=== PATIENT | male | born 1965 | race Caucasian/White ===

== ENCOUNTER → 2017-11-22 | Outpatient (CLI) | payer BC ==
[2017-11-22 17:37] LABS: Basophils % (A) 1 %; Eosinophils # (A) 0.2 k/uL (0-0.7); Eosinophils % (A) 3 %; HGB 13.6 gm/dL (13.0-17.5); Lymphocytes # (A) 1.7 k/uL (1.0-4.8); Lymphocytes % (A) 33 %; MCH 29.3 pg (25.0-35.0); MCHC 34.1 g/dL (31.0-37.0); Monocytes # (A) 0.3 k/uL (0-1.0); Monocytes % (A) 6 %; Neutrophils # (A) 2.9 k/uL (1.3-7.7); Neutrophils % (A) 54 %; Platelet Count 301 k/uL (150-450); RBC 4.65 m/uL (4.30-5.90); RDW 13.5 % (11.5-15.5); WBC 5.3 k/uL (3.8-10.6)
== END ==
LOC: LABPAT 16:47
PROVIDERS: ATTEND Surgery
DX: Z01.812 Encounter for preprocedural laboratory examination (principal); Z01.818 Encounter for other preprocedural examination; R13.19 Other dysphagia; K21.0 Gastro-esophageal reflux disease with esophagitis
CPT/HCPCS: 36415; 85025; 93005

== ENCOUNTER 2017-11-28 06:20 | Inpatient (IN) | payer BC ==
[2017-11-22 15:23] VITALS: BMI 32.5
[~2017-11-28 06:20] MED LIST: DEXAMETHASONE SOD PHOSPHATE 10 MG/ML 1 ML VIAL IV ONE; HEPARIN SODIUM,PORCINE 5,000 UNIT/ML 1 ML VIAL SQ ONE; MORPHINE SULFATE 4 MG/ML SYRINGE IV PRN; ONDANSETRON 4 MG/2 ML VIAL IVP ONE; ceFAZolin IN SWFI 2 GM/20 ML SYRINGE IVP ONE
[2017-11-28] MEDS: LACTATED RINGERS 1,000 ML IV SCH (07:12)
[2017-11-28] MEDS ORDERED: LIDOCAINE 1% 20 ML VIAL (10MG/ML) FOR IV START INTRADERMA ONE (07:13)
--- NOTE | 2017-11-28 07:56 | P.GSHP ---
History of Present Illness H&P Date: 11/28/17 Chief Complaint: GERD This is a 52-year-old male referred from Dr. Torres. Patient rents today for laparoscopic Promise fundal plication. He has had issues with GERD.The patient has had long-standing problems with reflux esophagitis. The patient underwent recent EGD is found have evidence of esophagitis. Patient has been well informed on the procedure of laparoscopic Promise fundoplication. The patient is aware the risk of the conversion to the open procedure, risk of injury to the stomach, liver and spleen. The patient is also a risk of recurrent GERD and dysphagia symptoms. The patient understands there is a postoperative diet of full liquids for 2 weeks after surgery. 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, COLONOSCOPY,EGD Past Anesthesia/Blood Transfusion Reactions: No Reported Reaction Past Psychological History: No Psychological Hx Reported Smoking Status: Former smoker Past Alcohol Use History: Rare Additional Past Alcohol Use History / Comment(s): QUIT SMOKING 1996 Past Drug Use History: None Reported - Past Family History Mother Family Medical History: No Reported History Medications and Allergies Home Medications Medication Instructions Recorded Confirmed Type Omeprazole [PriLOSEC] 20 mg PO BID 12/14/16 11/28/17 History Allergies Allergy/AdvReac Type Severity Reaction Status Date / Time No Known Allergies Allergy Verified 12/20/16 09:17 Surgical - Exam Vital Signs Temp Pulse Resp BP Pulse Ox 98.4 F 68 18 123/80 94 L 11/28/17 06:54 11/28/17 06:54 11/28/17 06:54 11/28/17 06:54 11/28/17 06:54 - General well developed, no distress - Eyes PERRL - ENT normal pinna - Neck no masses - Respiratory normal expansion - Cardiovascular Rhythm: regular - Abdomen Abdomen: soft, non tender Assessment and Plan Assessment: GERD. We'll perform laparoscopic Promise fundoplication.
[2017-11-28] MEDS ORDERED: PROPOFOL 10 MG/ML 20 ML VIAL IV ONE (07:59)
[2017-11-28] MEDS ORDERED: METHYLENE BLUE 10 MG/ML (10 ML VIAL) ONE (07:59)
[2017-11-28] MEDS ORDERED: LIDOCAINE 1% INJ 10MG/ML (20 ML MDV) ONE (07:59)
[2017-11-28] MEDS ORDERED: ROCURONIUM BROMIDE 10 MG/ML 10 ML VIAL IV ONE (07:59)
[2017-11-28] MEDS ORDERED: MIDAZOLAM 2 MG/2 ML VIAL ONE (07:59)
[2017-11-28] MEDS ORDERED: GLYCOPYRROLATE 0.2 MG/ML 2 ML VIAL ONE (07:59)
[2017-11-28] MEDS ORDERED: fentaNYL (PF) 50 MCG/ML 2 ML AMP ONE (07:59)
[2017-11-28] MEDS ORDERED: SUCCINYLCHOLINE CHLORIDE 100 MG/5 ML SYR IV ONE (07:59)
[2017-11-28] MEDS ORDERED: NEOSTIGMINE 1 MG/ML 10 ML VIAL ONE (07:59)
[2017-11-28] MEDS ORDERED: ePHEDrine SULFATE/0.9% NACL/PF 50 MG/5 ML SYRINGE IV ONE (07:59)
[2017-11-28] MEDS ORDERED: BUPIVACAINE (PF) 0.25% 30 ML VIAL SQ ONE (08:32)
[2017-11-28] MEDS ORDERED: LACTATED RINGERS 1,000 ML IV ONE (09:11)
[2017-11-28] MEDS ORDERED: MORPHINE SULFATE 4 MG/ML SYRINGE IVP PRN (11:44)
[2017-11-28] MEDS ORDERED: ONDANSETRON 4 MG/2 ML VIAL IVP PRN (11:44)
--- NOTE | 2017-11-28 11:53 | P.OP ---
Date of Procedure: 11/28/17 Preoperative Diagnosis: GERD Postoperative Diagnosis: GERD Recurrent hiatal hernia Procedure(s) Performed: Laparoscopic Promise fundal plication Lysis of extensive adhesions Anesthesia: JOSÉ LUIS Surgeon: Edward Otoole Estimated Blood Loss (ml): 75 Pathology: none sent Condition: stable Disposition: PACU Description of Procedure: The patient was placed on the operating table in the supine position. The patient received general anesthesia. And was placed in dorsal lithotomy position. The patient was prepped and draped in the usual sterile fashion. The skin incision sites were anesthetized with 1% local Xylocaine. The skin was incised in the left periumbilical area and then using a blade less 5 mm trocar under direct visualization panel cavity was entered. After adequate insufflation the laparoscope was then placed into the peritoneal cavity. Next a 5 mm trochars placed in the right epigastric position. Another 5 millimeter trocar the right lateral position. Another 5 millimeter trocar in the left lateral position a 5 mm trocar is placed in the left epigastric position. And then the initial 5 mm trocar was exchanged for a 10 mm trocar. The left lateral lobe liver was retracted. The patient had extensive adhesions at the hiatus. Approximate 40 minutes of operative time used to lyse adhesions. The hernia was seen. The crural defect was then dissected using the Harmonic scissors device. A 360 crural dissection was performed the esophagus stomach was reduced back into the peritoneal Cavity. The crural defect was then closed using 2-0 Ethibond suture. Next the fundus of the stomach was mobilized using the Harmonic scissors device. and then a 58-[place] bougie dilator was placed oropharynx passed into the esophagus and stomach the fundal plication wrap was then performed by grasping the fundus posteriorly and bringing it around the esophagus and stomach a 180 fundoplication was then performed using 2-0 Ethibond suture. Care was taken that the fundal location rested over top of the intra-abdominal esophagus. There was no injury seen to the stomach or esophagus. The dilator was then withdrawn. The stomach was then insufflated with methylene blue normal saline. 500 mL of methylene blue saline was instilled via a orogastric tube. There is known to be extravasation. The abdomen was irrigated there is no bleeding seen. The trochars were then withdrawn and then skin incision sites were closed using 3-0 Monocryl suture Steri-Strips are applied. Patient thought procedure well and sent to recovery room in stable condition.
--- NOTE | 2017-11-28 14:55 | FL ---
SINGLE CONTRAST SINGLE CONTRAST ESOPHAGRAM: CLINICAL HISTORY: 52-year-old male status post Promise fundoplication, rule out leak/obstruction TECHNIQUE: Single contrast exam performed with 35 ml Omnipaque 350 contrast. Total fluoroscopy time: 55 seconds. Total images: 16. FINDINGS: The patient swallowed oral contrast without difficulty or delay. Contrast promptly pools within the lower esophagus with progressive pooling. The patient only swallowed 3 times and a total of 35 mL and with each swallow, small amount of contrast passes into the stomach but with significant contrast re maining within the esophagus. Recurrent episodes of intraesophageal reflux are demonstrated. There is no evidence of contrast extravasation to suggest leak. 10 minute post procedure radiograph shows mild residual contrast pooled in the distal esophagus and g reater progression into the stomach. Faint opacification of the duodenum. Small amount of postsurgical free air below the left hemidiaphragm. Some patchy atelectasis/infiltrat e at the left base. IMPRESSION: 1. Moderate, moderate to severe postoperative obstruction at the GE junction. 2. No evidence of leak status post Promise fundoplication. 3. Small amount of postsurgical free air on the left. 4. Patchy atelectasis/infiltrate at the left base.
[2017-11-28] MEDS: D5-0.45% NACL WITH KCL 20MEQ/L 1,000 ML IV SCH ×2 (14:58→22:30)
[2017-11-28] MEDS: ACETAMINOPHEN TAB 325 MG TAB PO PRN (17:56)
--- NOTE | 2017-11-29 00:02 | P.CONS ---
History of Present Illness - Reason for Consult Consult date: 11/28/17 Medical management of GERD and postoperative care - Chief Complaint Admitted for elective Promise fundoplication surgery - History of Present Illness Patient is a 52-year-old male with a known history of GERD and history of fundoplication 17 years ago and also recently having recurrence of symptoms since the DS was admitted to the hospital for elective laparoscopic Promise fundoplication. Patient underwent EGD recently with evident evidence of esophagitis. Otherwise patient tolerated the procedure very well. Currently denied any complaints of chest pain or shortness of breath. No nausea vomiting or abdominal pain. Denied any other issues at this time. Review of Systems Constitutional: Patient denies any fever or chills . No generalized weakness or weight loss. Abdomen: Patient denied nausea vomiting and diarrhea and abdominal pain. Cardiovascular: Patient denies any chest pain or short of breath no palpitations. Respiratory: patient denied any cough is from production. No shortness of breath Neurologic: Patient denied any numbness or tingling headache. Musculoskeletal: Patient denies any complaints of joint swelling or deformity. Skin: Negative Psychiatric: Negative Endocrine: No heat or cold intolerance. No recent weight gain. Genitourinary: No dysuria or hematuria. 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, COLONOSCOPY,EGD Past Anesthesia/Blood Transfusion Reactions: No Reported Reaction Past Psychological History: No Psychological Hx Reported Smoking Status: Former smoker Past Alcohol Use History: Rare Additional Past Alcohol Use History / Comment(s): QUIT SMOKING 1996 Past Drug Use History: None Reported - Past Family History Mother Family Medical History: No Reported History Medications and Allergies Home Medications Medication Instructions Recorded Confirmed Type Omeprazole [PriLOSEC] 20 mg PO BID 12/14/16 11/28/17 History Allergies Allergy/AdvReac Type Severity Reaction Status Date / Time No Known Allergies Allergy Verified 11/28/17 11:57 Physical Exam Vitals: Vital Signs Temp Pulse Resp BP Pulse Ox 11/28/17 21:33 98.2 F 84 16 129/82 95 11/28/17 14:00 93 133/84 93 L 11/28/17 13:45 91 144/88 93 L 11/28/17 13:30 84 125/86 93 L 11/28/17 13:15 85 153/85 92 L 11/28/17 13:00 97.9 F 77 20 143/92 93 L 11/28/17 12:30 89 18 133/78 95 11/28/17 12:00 87 18 150/85 95 11/28/17 11:45 79 18 140/85 95 11/28/17 11:30 77 18 138/73 95 11/28/17 11:15 85 18 138/79 95 11/28/17 11:09 97.3 F L 82 18 137/79 99 11/28/17 06:54 98.4 F 68 18 123/80 94 L Intake and Output 11/28/17 11/28/17 11/29/17 14:59 22:59 06:59 Intake Total 1490 180 Output Total 75 Balance 1415 180 Intake: IV 1350 Intake, IV Titration 40 Amount Lactated Ringers 1,000 ml 40 @ 20 mls/hr IV .Q24H CHRISTOPHER Rx#:[id number] Oral 100 180 Output: Estimated Blood Loss 75 Other: # Voids 1 Weight 108.862 kg 108.862 kg PHYSICAL EXAMINATION: Patient is lying in the bed comfortably, no acute distress, awake alert and oriented.. HEENT: Normocephalic. Neck is supple. Pupils reactive. Nostrils clear. Oral cavity is moist. Ears reveal no drainage. Neck reveals no JVD, carotid bruits, or thyromegaly. CHEST EXAMINATION: Trachea is central. Symmetrical expansion. Lung yoder clear to auscultation and percussion. CARDIAC: Normal S1, S2 with no gallops. No murmurs ABDOMEN: Soft. Bowel sounds normal. No organomegaly. No abdominal bruits. Extremities: reveal no edema. No clubbing or cyanosis Neurologically awake, alert, oriented x3 with well-coordinated movements. No focal deficits noted Skin: No rash or skin lesions. Psychiatric: Coperative. Nonsuicidal Musculoskeletal: No joint swelling or deformity. Normal range of motion. Assessment and Plan Assessment: GERD Status post Promise fundoplication POD 0 Previous history of smoking Donated left kidney Plan: Patient will be continued on IV fluids and pain medications reviewed and examination. DVT prophylaxis with Lovenox. We will follow up closely. Continue with current management. Further recommendations based on the clinical course. Thank you for your consult
[2017-11-29] MEDS: ACETAMINOPHEN TAB 325 MG TAB PO PRN (00:53)
[2017-11-29 06:48] VITALS: BP 136/82; PULSE 71; RESP 14; TEMP 97.8
[2017-11-29] MEDS: LACTATED RINGERS 1,000 ML IV SCH (07:36)
[2017-11-29] MEDS: D5-0.45% NACL WITH KCL 20MEQ/L 1,000 ML IV SCH (08:38)
--- NOTE | 2017-11-29 08:38 | P.DS ---
Providers Date of admission: 11/28/17 06:20 Expected date of discharge: 11/29/17 Attending physician: Edward Otoole Consults: 11/28/17 12:42 Consult Physician Routine Consulting Provider: Pardeep Arrieta Consult Reason/Comments: Medical management for Dr. Torres Do you want consulting provider notified?: Yes Primary care physician: [facility] Course: 52-year-old gentleman presented to undergo an elective laparoscopic Promise fundoplication for symptomatic esophageal reflux symptoms. Patient has had a long-standing problem with reflux esophagitis. Recently underwent an EGD found to have evidence of esophagitis. Patient tolerated the procedure and was felt to be stable and appropriate proceed with a discharge to home. It was reinforced to the patient post operative diet full liquids for 2 weeks after surgery. Impression discharge diagnoses Symptomatic esophageal reflux disease Chronic reflux esophagitis A recent EGD with evidence of esophagitis History of hiatal hernia The above impression and plan of care have been discussed and directed by signing physician. Rivka Lauren nurse practitioner acting as scribe for signing physician. Plan - Discharge Summary Discharge Rx Participant: Yes New Discharge Prescriptions: Discontinued Omeprazole [PriLOSEC] 20 mg PO BID Follow up Appointment(s)/Referral(s): Edward Otoole MD [STAFF PHYSICIAN] - 1 Week Activity/Diet/Wound Care/Special Instructions: No tub bath for six weeks. Shower daily. No lifting over 10 pounds for the next 6 weeks. May use ice packs to surgical site. Full liquid diet for 2 weeks after surgery Discharge Disposition: HOME SELF-CARE
[2017-11-29] MEDS ORDERED: ENOXAPARIN 40 MG/0.4 ML SYRINGE SQ SCH (09:00)
--- NOTE | 2017-11-29 20:28 | PN ---
PROGRESS NOTE I am covering for Dr. Karsten Torres. DATE OF SERVICE: 11/29/2017 This 52-year-old gentleman who was admitted after Promise fundoplication is improving significantly. No chest pain. No palpitations. No fever. On exam, alert and oriented x3. Pulse 68, blood pressure 136/82, respiration 14, temperature 97.8, pulse ox 97% on room air. HEENT: Conjunctivae normal. NECK: No jugular venous distention. CARDIOVASCULAR SYSTEM: S1, S2 muffled. RESPIRATORY SYSTEM: Breath sounds diminished at the bases. No rhonchi. No crackles. ABDOMEN: Soft. Status post surgery. LEGS: No edema. No swelling. NERVOUS SYSTEM: No focal deficit. Labs are not available. ASSESSMENT: 1. Status post Promise fundoplication. 2. Gastroesophageal reflux disease. 3. History of nicotine dependence. 4. History of left kidney donation. RECOMMENDATIONS AND DISCUSSION: I recommend to continue current medication, continue symptomatic treatment. Incentive spirometry. Closely follow with Surgery. Further recommendations per Surgery. Follow closely with Dr. Torres in the outpatient setting. MMODL / IJN: [id number] /
== END 2017-11-29 11:10 | disposition home or self-care (01) | DRG 328 ==
LOC: 2ORMAIN 06:20 → 3SUR 11:00
PROVIDERS: ADMIT Surgery; ATTEND Surgery
PROC: 0DV44ZZ Restriction of Esophagogastric Junction, Percutaneous Endoscopic Approach (ICD-10-PCS; principal; 2017-11-28 08:00)
PROC: 0DN64ZZ Release Stomach, Percutaneous Endoscopic Approach (ICD-10-PCS; principal; 2017-11-28 08:00)
PROC: 0BQT4ZZ Repair Diaphragm, Percutaneous Endoscopic Approach (ICD-10-PCS; principal; 2017-11-28 08:00)
DX: K21.0 Gastro-esophageal reflux disease with esophagitis (principal); K44.9 Diaphragmatic hernia without obstruction or gangrene; Z79.899 Other long term (current) drug therapy; Z87.891 Personal history of nicotine dependence
CPT/HCPCS: 74210; 86850; 86900; 86901

== ENCOUNTER → 2018-03-17 | Outpatient (CLI) | payer BC ==
--- NOTE | 2018-03-17 10:09 | FL ---
EXAMINATION: Cervical and Thoracic Esophagram DATE OF EXAM: 03/17/2018 CLINICAL INDICATION: 52-year-old male history of Promise fundoplication 3 months ago with relief of sy mptoms. However, there were 2 episodes of recurrent reflux 2 weeks ago. COMPARISON: None Total Fluoroscopy Time: 1 minute 44 seconds. Total images: 38. FINDINGS: The swallowing mechanism is normal and hypopharyngeal anatomy is preserved. The cervical and thoraci c portions have a normal course and caliber and normal motility. The mucosa is normal and no persiste nt filling defect is encountered. There is a moderate sized hiatal hernia and severe gastroesophageal reflux with Valsalva and position al maneuvers. IMPRESSION: 1. Moderate sized hiatal hernia, possibly secondary to recurrent hernia across the wrap versus wrap b reakdown. 2. Severe gastroesophageal reflux with Valsalva and positional maneuvers.
== END | disposition home or self-care (01) ==
LOC: RADFLMAIN 09:06
PROVIDERS: ATTEND Surgery
DX: K44.9 Diaphragmatic hernia without obstruction or gangrene (principal); K21.9 Gastro-esophageal reflux disease without esophagitis
CPT/HCPCS: 74220

== ENCOUNTER → 2019-01-29 | Outpatient (CLI) | payer BC | END | disposition home or self-care (01) | LOC: LABPAT 17:17 | PROVIDERS: ATTEND Orthopaedic Surgery | DX: Z01.812 Encounter for preprocedural laboratory examination (principal) | CPT/HCPCS: 87070 ==

== ENCOUNTER → 2019-02-10 | Outpatient (CLI) | payer BC | END | disposition home or self-care (01) | LOC: LABPAT 15:33 | PROVIDERS: ATTEND Orthopaedic Surgery | DX: Z01.818 Encounter for other preprocedural examination (principal) | CPT/HCPCS: 86850; 86900; 86901 ==

== ENCOUNTER 2019-02-16 05:56 | Day surgery (SDC) | payer BC ==
[2019-02-11 15:06] VITALS: BMI 31.8
--- NOTE | 2019-02-15 12:38 | HP ---
HISTORY AND PHYSICAL REASON FOR ADMISSION: Surgery scheduled for 02/16/2019. Karolyn Batista is a 53-year-old patient seen with symptomatic left hip osteoarthritis. After treatment options were discussed, he elected to proceed with left total hip arthroplasty. Consent regarding the procedure was obtained. Medical clearance was provided by Dr. Karsten Torres. PAST MEDICAL HISTORY: Gastroesophageal reflux disease. PAST SURGICAL HISTORY: Herniorrhaphy, nephrectomy. MEDICATIONS: Nexium. ALLERGIES: None. SOCIAL HISTORY: Denies current tobacco use. PHYSICAL EXAMINATION: Physical evaluation of the left hip: There is diffuse tenderness. Limited range of motion with severe pain. Straight leg raise negative. Positive impingement sign. Distal neurovascular exam intact. RADIOGRAPHS: Radiographs of the left hip reveal severe osteoarthritic changes. IMPRESSION: 1. Left hip osteoarthritis. 2. Gastroesophageal reflux disease. PLAN: Direct anterior left total hip arthroplasty. Surgery 02/16/2019. MMODL / IJN: [id number] /
[~2019-02-16 05:56] MED LIST changes: +ACETAMINOPHEN TAB 500 MG TAB PO ONE; -DEXAMETHASONE SOD PHOSPHATE 10 MG/ML 1 ML VIAL IV ONE; -HEPARIN SODIUM,PORCINE 5,000 UNIT/ML 1 ML VIAL SQ ONE; +LACTATED RINGERS 1,000 ML IV SCH; +LIDOCAINE 1% 20 ML VIAL (10MG/ML) FOR IV START INTRADERMA PRN; +MELOXICAM 7.5 MG TAB PO ONE; +MIDAZOLAM 2 MG/2 ML VIAL IV PRN; -MORPHINE SULFATE 4 MG/ML SYRINGE IV PRN; -ONDANSETRON 4 MG/2 ML VIAL IVP ONE; +TRANEXAMIC ACID 1,000 MG in SODIUM CHLORIDE 0.9% 100 ML IVPB ONE; +fentaNYL (PF) 50 MCG/ML 2 ML AMP IV PRN
[2019-02-16] MEDS ORDERED: ONDANSETRON 4 MG/2 ML VIAL IVP ONE (06:55)
[2019-02-16] MEDS ORDERED: DEXAMETHASONE SOD PHOSPHATE 10 MG/ML 1 ML VIAL IV ONE (06:56)
[2019-02-16] MEDS ORDERED: PROPOFOL 10 MG/ML 20 ML VIAL IV ONE (07:25)
[2019-02-16] MEDS ORDERED: NEOSTIGMINE 1 MG/ML 10 ML VIAL ONE (07:25)
[2019-02-16] MEDS ORDERED: HYDROmorphone (PF) 1 MG/ML ONE (07:25)
[2019-02-16] MEDS ORDERED: GLYCOPYRROLATE 0.2 MG/ML 2 ML VIAL ONE (07:25)
[2019-02-16] MEDS ORDERED: SODIUM CHLORIDE 0.9% 100 ML BAG ONE (07:25)
[2019-02-16] MEDS ORDERED: LIDOCAINE 1% INJ 10MG/ML (20 ML MDV) ONE (07:25)
[2019-02-16] MEDS ORDERED: MIDAZOLAM 2 MG/2 ML VIAL ONE (07:25)
[2019-02-16] MEDS ORDERED: ROCURONIUM BROMIDE 10 MG/ML 10 ML VIAL IV ONE (07:25)
[2019-02-16] MEDS ORDERED: TRANEXAMIC ACID 1,000 MG/10 ML VIAL ONE (07:25)
[2019-02-16] MEDS ORDERED: fentaNYL (PF) 50 MCG/ML 2 ML AMP ONE (07:25)
[2019-02-16] MEDS ORDERED: ROPIVACAINE 246.25 MG, EPINEPHrine 0.5 MG, KETOROLAC 30 MG, WATER FOR INJECTION,STERILE... MISCELLANE ONE ×4 (07:26)
[2019-02-16] MEDS ORDERED: ceFAZolin 1,000 MG in SODIUM CHLORIDE 0.9% 1,000 ML IRRIGATION ONE (09:04)
[2019-02-16] MEDS ORDERED: LACTATED RINGERS 1,000 ML IV ONE ×3 (09:04→12:36)
[2019-02-16] MEDS ORDERED: HYDROcodone/APAP 7.5-325MG 1 EACH TAB PO PRN (09:38)
[2019-02-16] MEDS ORDERED: HYDROcodone/APAP 5-325MG 1 EACH TAB PO PRN (09:38)
[2019-02-16] MEDS ORDERED: NALOXONE 0.4 MG/ML 1 ML VIAL IV PRN (09:38)
[2019-02-16] MEDS ORDERED: ONDANSETRON 4 MG/2 ML VIAL IVP PRN (09:38)
[2019-02-16] MEDS ORDERED: HYDROmorphone 1 MG/ML 1 ML SYRINGE IVP PRN (09:38)
[2019-02-16] MEDS ORDERED: HYDROmorphone 0.5 MG/0.5 ML SYRINGE IVP PRN ×2 (09:38)
--- NOTE | 2019-02-16 09:38 | P.OP ---
Date of Procedure: 02/16/19 Preoperative Diagnosis: Left hip osteoarthritis Postoperative Diagnosis: Left hip osteoarthritis Procedure(s) Performed: Direct anterior left total hip arthroplasty Implants: 1. Depuy Corail KA size 13 with collar press-fit femoral stem 2. Depuy pinnacle size 64 press-fit acetabular shell 3. Depuy pinnacle polyethylene acetabular liner 64 OD 36 ID 4. Biolox delta ceramic femoral head +1.5 36 Anesthesia: SEKOUA, local Surgeon: Avery Atkinson Estimated Blood Loss (ml): 1,000 Pathology: other (Femoral head) Condition: stable Disposition: PACU Indications for Procedure: 53-year-old patient seen with symptomatic left hip osteoarthritis. After t reatment options were discussed, he elected to proceed with total hip arthroplasty. Operative Findings: See description of procedure Description of Procedure: The patient was taken to the operative suite. Patient underwent a general anesthetic by the department of anesthesia. Patient was then transferred to the [place] table. Patient was given preoperative IV antibiotics and TXA. Both lower extremities were placed in standard leg spars. The hip was then prepped and draped in the normal sterile orthopedic fashion. A standard anterior incision was made beginning 3 cm lateral and 1 cm distal to the ASIS extending 10 cm. Dissection was then carried down through the subcutaneous soft tissues down to the fascia overlying the tensor fascia fany. An incision was now made through the fascia. Careful dissection was taken down exposing the tensor fascia fany muscle. A Cobra retractor was now placed along the medial femoral neck and a second one along the lateral femoral neck. The venous circumflex vessels were now identified, cauterized and clipped. We identified the anterior hip capsule. An incision was made through the hip capsule along the lateral border. I performed a partial anterior capsulectomy. Retractors were now placed around the femoral neck itself. A femoral neck cut was now made with a sagittal saw. It was completed with an osteotome at the lateral neck area. The femoral head was now removed without difficulty. The extremity was now rotated to 45 of external rotation. It was locked in position. Residual labrum was now debrided out. Serial reaming was performed of the acetabulum. Once we reached the appropriate size and a trial was position and fit nicely. The appropriate size was now chosen opened and made available. It was introduced into the acetabulum without difficulty. The C-arm/fluoroscopy was now brought into the operative field. We made sure we had a true AP pelvic view. We now under direct C- arm/fluoroscopy introduced into the acetabular component with appropriate version and inclination. I held the cup in appropriate position and I used a mallet to seat the acetabular component. I noted the component now to be well seated and stable. Acetabular cup introduce her was removed. The C-arm was pulled back. An appropriate liner was introduced and clicked into position. It was felt to be stable. At this point retractors were removed. The extremity was now placed into 120 external rotation with no traction. The leg was now dropped to the ground and adducted. Appropriate retractors were now positioned along the proximal femur. We also placed our femoral look into position. Additional capsular releasing was performed to gain access to the proximal femur. We now used a box osteotome. A canal finder was now utilized. Serial broaching was now performed. This was done until we reached the appropriate size with good overall rotational stability. Appropriate calcar planing was performed. A trial head/neck was placed into position. The hip was now reduced. The C-arm/fluoroscopy was brought back into the operative field. A spot film was obtained of the nonoperative hip. A spot film was obtained of the trial components. Overlays were performed, we noted good overall alignment and positioning for determining leg length. The C-arm/fluoroscopy was pulled back. Retractors were repositioned and the hip was dislocated. The leg was again taken down to the ground and adducted. Appropriate retractors were repositioned as well as the femoral hook. All trial components were removed. The femoral implant was opened along with the femoral head. The femoral implant was introduced on the appropriate handle into our pre-broached area. I used a mallet to seat the femoral component. The femoral component was now noted to be well seated and stable.. The femoral head was introduced with good positioning and fixation noted. Retractors were now removed. The hip was now reduced. There appeared be good positioning of the hip confirmed on intraoperative fluoroscopy. Spot films were obtained to document this. A second gram of TXA was given. The deep and superficial soft tissues were infiltrated with local analgesic. Bipolar cautery had been utilized intermittently through the procedure for hemostasis. The wound was irrigated copiously with pulse lavage mechanical irrigation. The fascia was repaired with Vicryl suture. The subcutaneous soft tissues were repaired in layers with Vicryl suture. The skin was approximated with pernio/Dermabond. Sterile dressings were applied. Patient was then awakened, transferred to a bed and taken to recovery in stable condition.
[2019-02-16] MEDS ORDERED: LACTATED RINGERS 1,000 ML IV SCH (09:45)
[2019-02-16 10:00] VITALS: TEMP 97.1
[2019-02-16] MEDS ORDERED: HYDROmorphone 1 MG/ML 1 ML SYRINGE IVP ONE ×2 (10:05→10:28)
--- NOTE | 2019-02-16 12:06 | FL ---
EXAMINATION TYPE: FL guidance operating room DATE OF EXAM: 02/16/2019 HISTORY: Flouroscopy time 22 seconds of fluoroscopy provided. IMPRESSION: 1. Fluoroscopy time.
--- NOTE | 2019-02-16 12:07 | XR ---
EXAMINATION TYPE: XR Hip Limited LT DATE OF EXAM: 02/16/2019 COMPARISON: NONE HISTORY: Postop TECHNIQUE: One view submitted. FINDINGS: There is postsurgical change in near anatomic alignment. There is soft tissue edema and emphysema. IMPRESSION: 1. Postoperative change. Appears in near-anatomic alignment.
[2019-02-16 13:10] VITALS: BP 120/76; PULSE 75; RESP 18
[2019-02-16] MEDS ORDERED: ceFAZolin IN SWFI 2 GM/20 ML SYRINGE IVP ONE (14:00)
[2019-02-17] MEDS ORDERED: MELOXICAM 7.5 MG TAB PO SCH (09:00)
== END 2019-02-16 14:18 | disposition home or self-care (01) ==
LOC: OR 05:56
PROVIDERS: ATTEND Orthopaedic Surgery
DX: M16.12 Unilateral primary osteoarthritis, left hip (principal); K21.9 Gastro-esophageal reflux disease without esophagitis; Z79.899 Other long term (current) drug therapy; Z98.890 Other specified postprocedural states; Z90.5 Acquired absence of kidney; Z52.4 Kidney donor
CPT/HCPCS: 27130; 97161; 88300; 73501; C1776; J2250; J0171; J1100; J2710; J2405; J0690 ×2; J2001; J3010; J1885; J1170; J2795; J2704

== ENCOUNTER 2020-01-12 11:34 | Emergency (ER) | payer BC ==
[2020-01-12 11:39] VITALS: BP 108/80; PULSE 65; RESP 18; TEMP 97.5
--- NOTE | 2020-01-12 12:06 | ED ---
Upper Extremity HPI - General Chief Complaint: Extremity Injury, Upper Stated Complaint: hand injury Time Seen by Provider: 01/12/20 12:03 Source: patient Mode of arrival: ambulatory Limitations: no limitations - History of Present Illness Initial Comments: 54-year-old male presenting today for chief complaint of left hand injury. Patient states just prior to arrival his hand got caught in a chain it was squeezed. Patient states he is able to get his handout he states he has abrasions to the thumb as well as the left index finger. Patient states he is able to bend however the thumb is quite swollen as well as the left index finger. Patient denies any areas of large laceration he states bleeding is controlled. Patient is unsure of his last tetanus. Patient denies any pain in the wrist elbow or shoulder. Patient denies any injury to the head or other regions of the body. Patient was concerned there is possibly a fracture presents emergency department for evaluation. Patient denies any numbness tingling loss sensation coolness pallor of the extremity. Patient remaining ROS (-). Upon arrival patient appears well no distress. - Related Data Home Medications Medication Instructions Recorded Confirmed Cholecalciferol (Vitamin D3) 1,000 unit PO DAILY 02/11/19 02/11/19 [Vitamin D3] Esomeprazole Magnesium [NexIUM] 20 mg PO DAILY 02/11/19 02/16/19 Multivitamins, Thera [Multivitamin 1 tab PO DAILY 02/11/19 02/11/19 (formulary)] Previous Rx's Medication Instructions Recorded Aspirin [Adult Low Dose Aspirin EC] 81 mg PO BID #60 tablet. 02/16/19 Hydrocodone/Acetaminophen [[place] 1 - 2 each PO Q6HR PRN #30 tab 02/16/19 5-325] Allergies Allergy/AdvReac Type Severity Reaction Status Date / Time No Known Allergies Allergy Verified 01/12/20 11:39 Review of Systems ROS Statement: Those systems with pertinent positive or pertinent negative responses have been documented in the HPI. ROS Other: All systems not noted in ROS Statement are negative. 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 Eye: +3 mm pupils are equal, round and reactive to light, extra-ocular movements are intact. No nystagmus. There is normal conjunctiva bilaterally. No signs of icterus. Musculoskeletal: Upon inspection of the hands bilaterally there is soft tissue abrasions over the index finger between MCP and PIP joint. Patient has abrasion over the IP joint of the left thumb. Patient can flex and extend at the PIP and DIP joint of the index finger, but he has slightly limited ROM with flexion at the MCP . Strength 5/5. Sensation intact. Radial pulses equal bilaterally 2+. Neurological: A&O x 3. CN II-XII intact grossly, There are no obvious motor or sensory deficits. Coordination appears grossly intact. Speech is normal. Skin: Skin is warm and dry and no rashes or lesions are noted. Psychiatric: Cooperative, appropriate mood & affect, normal judgment. Limitations: no limitations Course Vital Signs 01/12/20 11:38 Temperature 97.5 F L Pulse Rate 65 Respiratory 18 Rate Blood Pressure 108/80 O2 Sat by Pulse 96 Oximetry Medical Decision Making - Medical Decision Making 54-year-old male presenting for left hand injury. Patient has abrasion on physical examination. There is no obvious tendon injury however she has slight limited range of motion at the left index finger which may be secondary to swelling but we cannot rule out an occult tendon injury. Patient has no evidence of osseous injury on plain films. Patient is neurovascularly intact. At this time--I feel patient is stable for discharge with splinting of left hand at level of mcp joint (concern for left index tendon injury) with orthopedic f/u. Patient is agreeable to this care plan and discharge at this time.Return parameters discussed, tetanus given. Disposition Clinical Impression: Abrasion, Hand swelling Disposition: HOME SELF-CARE Condition: Good Instructions (If sedation given, give patient instructions): R.I.C.E. Treatment (ED), Tendon Repair (DC) Additional Instructions: Please use medication as discussed. Please follow-up with family doctor in the next 2 days, please contact orthopedic surgery to make appointment for evaluation of possible tendon injury (please state this when making the appointment) Please return to emergency room if the symptoms increase or worsen or for any other concerns. Is patient prescribed a controlled substance at d/c from ED?: No Referrals: Karsten Torres DO [Primary Care Provider] - 1-2 days Time of Disposition: 12:28
--- NOTE | 2020-01-12 12:16 | XR ---
EXAMINATION TYPE: XR hand complete LT DATE OF EXAM: 01/12/2020 COMPARISON: None HISTORY: Pain laceration base of index finger TECHNIQUE: Three-view left hand FINDINGS: No acute fractures or osseous abnormalities are evident. Joint spaces are preserved. No rad iopaque foreign bodies are evident. Patient's laceration at the index finger base is not identified. Follow-up exams can be performed 7-10 days from acute trauma to reevaluate for osseous abnormalities such as fracture. IMPRESSION: 1. Normal left hand
[2020-01-12] MEDS ORDERED: ceFAZolin 1,000 MG VIAL (IM USE) IM STA (12:19)
[2020-01-12] MEDS ORDERED: DIPH,PERTUS(ACELL)TETVAC-LF 0.5 ML VIAL IM ONE (12:19)
[2020-01-12] MEDS ORDERED: ACET/COD 300 MG/30 MG STARTER PACK 6 TAB BTL PO STA (12:29)
== END 2020-01-12 13:00 | disposition home or self-care (01) ==
LOC: EC 11:34
DX: S60.512A Abrasion of left hand, initial encounter (principal); Z23 Encounter for immunization; M79.89 Other specified soft tissue disorders; K21.9 Gastro-esophageal reflux disease without esophagitis; Z87.891 Personal history of nicotine dependence; Z79.899 Other long term (current) drug therapy; W23.0XXA Caught, crushed, jammed, or pinched between moving objects, initial encounter
CPT/HCPCS: 29125; 90471; 90715; 99283

== ENCOUNTER 2023-10-04 07:25 | Day surgery (SDC) | payer BC ==
[2023-09-30 12:01] VITALS: BMI 33.2
[~2023-10-04 07:25] MED LIST changes: -ACETAMINOPHEN TAB 500 MG TAB PO ONE; +DEXAMETHASONE SOD PHOSPHATE 4 MG/ML 1 ML VIAL IV ONE; +HYDROmorphone 0.5 MG/0.5 ML SYRINGE IVP PRN; +LIDOCAINE 1% (10MG/ML) FOR IV START INTRADERMA PRN; -LIDOCAINE 1% 20 ML VIAL (10MG/ML) FOR IV START INTRADERMA PRN; -MELOXICAM 7.5 MG TAB PO ONE; -MIDAZOLAM 2 MG/2 ML VIAL IV PRN; +ONDANSETRON 4 MG/2 ML VIAL IVP ONE; -TRANEXAMIC ACID 1,000 MG in SODIUM CHLORIDE 0.9% 100 ML IVPB ONE; -ceFAZolin IN SWFI 2 GM/20 ML SYRINGE IVP ONE; +droPERidol 5 MG/2 ML VIAL IVP ONE; -fentaNYL (PF) 50 MCG/ML 2 ML AMP IV PRN
[2023-10-04] MEDS ORDERED: MIDAZOLAM 2 MG/2 ML VIAL IVP ONE (08:38)
[2023-10-04] MEDS ORDERED: fentaNYL (PF) 50 MCG/ML 2 ML AMP IVP ONE (08:38)
[2023-10-04] MEDS ORDERED: MIDAZOLAM 2 MG/2 ML VIAL ONE (09:05)
[2023-10-04] MEDS ORDERED: ROPIVACAINE 5 MG/ML 30 ML VIAL ONE (09:05)
[2023-10-04] MEDS ORDERED: DEXAMETHASONE SOD PHOSPHATE 4 MG/ML 1 ML VIAL ONE (09:05)
[2023-10-04] MEDS ORDERED: LIDOCAINE 1% INJ 10MG/ML (20 ML MDV) ONE (09:05)
[2023-10-04] MEDS ORDERED: PROPOFOL 10 MG/ML 20 ML VIAL IV ONE (09:05)
[2023-10-04] MEDS ORDERED: SODIUM CHLORIDE 0.9% (PF) 10 ML VIAL ONE (09:05)
[2023-10-04 10:55] VITALS: TEMP 97
--- NOTE | 2023-10-04 11:04 | P.OP ---
Date of Procedure: 10/04/23 Preoperative Diagnosis: Hallux rigidus left foot Postoperative Diagnosis: Same Procedure(s) Performed: First metatarsal phalangeal joint arthrodesis left foot Implants: Arthrex MaxForce plate, 3.0 mm locking and nonlocking screws Anesthesia: JOSÉ LUIS Surgeon: Mil Restrepo Estimated Blood Loss (ml): 5 Pathology: none sent Condition: stable Disposition: PACU Description of Procedure: Prior to the patient being brought to the operating room, anesthesia admin istered a nerve block on the surgical extremity. Then the patient was brought into the operating room and placed on table in the supine position. Timeout was taken to confirm correct patient identifiers, correct lateral surgery, and correct procedure. Once the staff in the room were in agreement with the timeout, the patient was induced and placed under general anesthesia. A well- padded tourniquet was placed on the ankle and then the foot was prepped and draped in the usual manner. The right foot was exsanguinated and the tourniquet inflated to 250 mmHg. Attention was directed over the dorsal aspect of the first metatarsal phalangeal joint, where a linear incision was made between the long extensor tendon and the neurovascular structures. The incision was deepened down to the subcutaneous layer careful to identify, avoid, and retract any neurovascular structures and cauterize any bleeding vessels. Blunt dissection was continued through the subcutaneous layer down to the periosteum and capsule. A linear periosteal and capsular incision was made medial to the long extensor tendon. Those tissues were then sharply reflected off of the first metatarsal head and shaft as well as the base of the proximal phalanx. The soft tissue was released around the joint so that the joint could be mobilized and accessed. A guidewire was placed through the central aspect of the first metatarsal head parallel to the long access and within the medullary canal. Appropriate size reamers were used to shape the first metatarsal head. Then a concave reamer was inserted over the guidewire and used to remove the articular cartilage and subchondral bone. The wire was removed was used to aggressively fenestrate the head of the first metatarsal. The guidewire was then inserted at the central aspect of the articular surface of the base of the proximal phalanx. The wire was advanced parallel to the long access and within the medullary canal. The convex reamer was then used to remove the articular cartilage and subchondral bone. The guidewire was removed and used to fenestrate the surface. The wound was thoroughly irrigated with antibiotic saline. Arthrex Arthrocell was placed between the arthrodesis segments. A 0 bend first metatarsal phalangeal joint fusion plate was then positioned dorsally over the site. Temporary fixation was used to hold the plate in place. Fluoroscopy was used to check the placement of the plate as well as the joint alignment. Once both positions were satisfactory, a combination of locking and nonlocking screws were placed in the distal part of the plate into the proximal phalanx. The position of the joint and plate were checked again under fluoroscopy. Once both were satisfactory, a wire was placed in the base of the proximal phalanx and across the arthrodesis site to maintain the alignment. The offset drill guide was then placed in the compression slot of the plate. The guide was removed and then the compression device was inserted through the drill hole and engaged with the plate. The compression device was turned to further compress the joint. While holding in compression, another threaded olive wire was used to hold it in place. A drill hole through the proximal compression slot was then made and a nonlocking screw was inserted and tightened until it engaged the plate and provided further compression across the arthrodesis site. A nonlocking screw was then placed in the drill hole in the proximal aspect of the plate closest to the joint line. The final screw was a locking screw placed in the most proximal hole the plate. Final fluoroscopic imaging showed proper placement of all hardware, maintaining correction of the joint, and excellent compression across the arthrodesis site. The temporary fixation wire was removed and the joint thoroughly irrigated with antibiotic saline. The capsule and periosteal tissues were closed with 0 Vicryl. Subcu closure was done with 4-0 Monocryl. And skin closure was done with 4-0 Stratafix in a running subcuticular manner. Dermal glue was placed around the incision, and once dried, Steri-Strips are placed across incision. An Arthrex jumpstart dressing was placed directly over the incision and then a dry sterile dressings applied to the right foot. The tourniquet was released and capillary refill return to all digits on the right foot. The patient was then placed in a well-padded, well molded plaster posterior mold/sugar tong splint. The ankle was held in neutral position until the splint was dried. Then anesthesia was reversed and the patient was taken recovery with vital signs stable.
[2023-10-04 11:19] VITALS: RESP 16
[2023-10-04 11:44] VITALS: BP 122/77; PULSE 58
--- NOTE | 2023-10-04 13:42 | P.ANPRN ---
Procedure Note - Anesthesia - Nerve Block Performed Left Popliteal Single Time Out Performed: Yes (0837) Date of Procedure: 10/04/23 Procedure Start Time: 08:38 Procedure Stop Time: 08:42 Location of Patient: PreOp Indication: Acute Post-Operative Pain, Requested by Surgeon Specifically requested for management of pain by DrNoam: Mil Restrepo Sedation Type: Sedate with meaningful contact maintained Preparation: Sterile Prep Position: Supine Catheter: None Needle Types: Pajunk Needle Gauge: 21 Ultrasound used to visualize needle placement: Yes Ultrasound used to observe medication spread: Yes Injectate: 0.5% Ropivacaine (see comment for volume) (15cc+10cc nacl pf) Blood Aspirated: No Pain Paresthesia on Injection Noted: No Resistance on Injection: Normal Image Stored and Saved: Yes Events: Uneventful and Well Tolerated
--- NOTE | 2023-10-04 13:43 | P.ANPRN ---
Procedure Note - Anesthesia - Nerve Block Performed Left Adductor Canal Single Time Out Performed: Yes (0837) Date of Procedure: 10/04/23 Procedure Start Time: 08:43 Procedure Stop Time: 08:45 Location of Patient: PreOp Indication: Acute Post-Operative Pain, Requested by Surgeon Specifically requested for management of pain by DrNoam: Mil Restrepo Sedation Type: Sedate with meaningful contact maintained Preparation: Sterile Prep Position: Supine Catheter: None Needle Types: Pajunk Needle Gauge: 21 Ultrasound used to visualize needle placement: Yes Ultrasound used to observe medication spread: Yes Injectate: 0.5% Ropivacaine (see comment for volume) (15cc+10cc nacl pf) Blood Aspirated: No Pain Paresthesia on Injection Noted: No Resistance on Injection: Normal Image Stored and Saved: Yes Events: Uneventful and Well Tolerated
== END 2023-10-04 12:16 | disposition home or self-care (01) ==
LOC: OR 07:25
PROVIDERS: ATTEND Podiatrist
DX: M20.22 Hallux rigidus, left foot (principal); I10 Essential (primary) hypertension; E78.5 Hyperlipidemia, unspecified; K21.9 Gastro-esophageal reflux disease without esophagitis; Z88.0 Allergy status to penicillin; Z88.5 Allergy status to narcotic agent; Z87.891 Personal history of nicotine dependence; Z79.899 Other long term (current) drug therapy
CPT/HCPCS: 64447; 64445; 28750; C1713; C1734; J2250; J1100; J0690; J2405; J2001; J3010; J2795; J2704

== ENCOUNTER → 2025-03-03 | Outpatient (CLI) | payer BC ==
[2025-03-03 16:11] LABS: HCT 40.6 % (39.6-50.0); HGB 13.2 g/dL (13.0-17.0); MCH 29.6 pg (27.0-32.0); MCHC 32.5 g/dL (32.0-37.0); Mean Platelet Volume 10.6 FL (9.5-12.2); NRBC Per 100 WBC 0 X 10*3/uL (0.00-0.01); Platelet Count 270 X 10*3/uL (140-440); RBC 4.46 X 10*6/uL (4.40-5.60); RDW 13.7 % (11.5-14.5); WBC 6.66 X 10*3/uL (4.50-10.00)
[2025-03-03 16:25] LABS: ALT 20 U/L (10-49); AST 19 U/L (14-35); Albumin/Globulin Ratio 2.22 Ratio (1.60-3.17); Alkaline Phosphatase 75 U/L (41-126); BUN/Creat Ratio 12.36 Ratio (12.00-20.00); Blood Urea Nitrogen 13.6 mg/dL (9.0-27.0); Carbon Dioxide 23.6 mmol/L (21.6-31.8); Chloride 109 mmol/L (96-109); Chol/HDL Ratio 3.36 Ratio; Globulin 1.8 g/dL (1.6-3.3); Glucose 92 mg/dL (70-110); LDL Cholesterol,Calculated 66.2 mg/dL (0.0-131.0); Potassium 3.9 mmol/L (3.5-5.5); Sodium 144 mmol/L (135-145); Total Bilirubin 0.4 mg/dL (0.3-1.2); Total Protein 5.8 g/dL (6.2-8.2)
[2025-03-03 17:02] LABS: NT-Pro-B-Type Natriuretic Pept 236 pg/mL (0-125)
== END | disposition home or self-care (01) ==
LOC: LABWHC1 09:00
PROVIDERS: ATTEND Student in an Organized Health Care Education/Training Program
DX: D72.9 Disorder of white blood cells, unspecified (principal); R79.89 Other specified abnormal findings of blood chemistry; E11.9 Type 2 diabetes mellitus without complications; I50.9 Heart failure, unspecified; E78.5 Hyperlipidemia, unspecified; E03.9 Hypothyroidism, unspecified
CPT/HCPCS: 36415; 80053; 80061; 83036; 83880; 84443; 85027